=== PATIENT | male | born 1985 | race Caucasian/White ===

== ENCOUNTER 2018-10-01 13:44 | Emergency (ER) | payer SELFPAY ==
[~2018-10-01] VITALS: Ht 180.3 cm; Wt 69.1 kg
[2018-10-01 13:54] VITALS: BP 110/60
--- NOTE | 2018-10-01 14:00 | NUR ---
PT HERE WITH COMPLAINTS OF RIGHT ARM SPIDER BITE X2 DAYS. PT DENIES DRUG USE AT THIS TIME.
--- NOTE | 2018-10-01 14:17 | NUR ---
Patient/Caregiver given discharge instructions and they have confirmed that they understand the instructions. Patient ambulatory with steady gait.
== END 2018-10-01 14:19 | disposition home or self-care (01) ==
LOC: ED 14:13
DX: S40.861A Insect bite (nonvenomous) of right upper arm, initial encounter (principal); L03.113 Cellulitis of right upper limb; F17.200 Nicotine dependence, unspecified, uncomplicated; W57.XXXA Bitten or stung by nonvenomous insect and other nonvenomous arthropods, initial encounter; Y93.89 Activity, other specified; Y92.89 Other specified places as the place of occurrence of the external cause; Y99.8 Other external cause status
CPT/HCPCS: 99283